=== PATIENT | female | born 1985 | race African-American/Black ===

== ENCOUNTER 2017-03-21 08:46 | Observation (INO) ==
[2017-03-21 09:55] LABS: Apearance,Urine CLOUDY (Clear); Bilirubin,Urine Negative (Negative); Blood, Urine Large mg/dL (Negative); Glucose,Urine (UA) Negative (Negative); Ketones,Urine Negative (Negative); Mucus,Urine Occasional /LPF (Occasional); Nitrite,Urine Negative (Negative); Protein,Urine 100 MG/DL; RBC,Urine 1059 /HPF (0-4); Urine Color Amber (Yellow); Urine Specific Gravity 1.006 (1.001-1.035); Urine Urobilinogen < 2.0 EU/DL (0.2-1.0); WBC,Urine 297 /HPF (0-6)
--- NOTE | 2017-03-21 09:56 | Ultrasound Report ---
Exam: US OB >= 14 weeks fetus Date: 03/21/2017 8:57 AM Comparison: 01/25/2017 Indication: Twin gestation with questionable PROM Technique:[Multiple transabdominal real-time scans were obtained. Color flow scans obtained. Ultrasound images were captured and stored.] Findings: Twin gestation. Twin A in the cephalic presentation with a heart rate 152 BPM. The anterior placenta is not low-lying in position with cervical length of 31 mm. Maternal ovaries are not identified. No detailed survey scans were obtained. Septum identified. Measurements obtained are as follows: BPD 32 weeks 2 days HC 33 weeks 3 days AC 32 weeks 0 days FL 31 weeks 6 days EFW 4 lbs. 3 oz. +/- 10 ounces GP 27.2% CARLA 199.7 mm Twin B is in the cephalic presentation with a heart rate 165 BPM. Anterior placenta with no detailed survey scans obtained. Measurements obtained are as follows: BPD 31 weeks 6 days HC 33 weeks 1 day AC 32 weeks 3 days FL 31 weeks 2 days EFW 4 lbs. 3 oz. +/- 10 ounces GP 26.6% Impression: Twin A in the cephalic presentation at 32 weeks 3 days +/- 2 weeks 2 days with EDC 05/13/2017. Prior EDC 05/12/2017. Twin B in the cephalic presentation at 32 weeks 1 day +/- 2 weeks 2 days with EDC 05/15/2017. Prior EDC 05/16/2017. CARLA 199.7 mm. PROCEDURE INTERPRETED AT [facility] DEPARTMENT OF RADIOLOGY Final Report Signed by: Dr. Cari Randloph
[2017-03-21] MEDS ORDERED: TERBUTALINE 1 MG/1 ML VIAL SUBCUT ONE (10:21)
[2017-03-21] MEDS ORDERED: NIFEdipine 10 MG CAPSULE PO ONE (10:21)
[2017-03-21] MEDS ORDERED: LACTATED RINGERS 1,000 ML IV ONE (10:21)
[2017-03-21] MEDS ORDERED: ceFAZolin 2,000 MG in PREMIX 1 EACH IV ONE (10:34)
--- NOTE | 2017-03-21 10:39 | OB/GYN History & Physical ---
History of Present Illness Chief complaint: Twin gestation 32 weeks labor UTI History of present illness: Ms. Ley is a 32 year old female Twin gestation at 32 weeks estimated gestational age with labor who was taken Procardia at home. She was found to have a substantial urinary tract infection on evaluation here in the labor department and complains of contractions. She is mackenzie every 3-4 minutes. Her cervix has not changed from her previous exam the office. He is constantly admitted for IV antibiotics and toco lysis. Will administer IM steroids and repeat in 24 hours Home Medications Medication Instructions Recorded Confirmed Type Pnv No.95/Ferrous Fum/Folic AC 1 tablet PO ONCE 01/25/17 03/21/17 History [ Tablet] Allergies Allergy/AdvReac Type Severity Reaction Status Date / Time No Known Allergies Allergy Verified 03/21/17 08:59 12 point system: reviewed and no additional remarkable complaints except as stated - Gastrointestinal Gastrointestinal: Present: cramping Medical,Surgical,& Family Hx - Medical History Cardio: No history of: Cardiovascular Problems Psychological: No history of: Previous Suicide Attempt, Psychiatric/Substance Abuse Tx, Violent Behavior Neurology: History of: Migraine No history of: Seizures Endocrine: No history of: Endocrine Problems Renal: No history of: Renal Problems Musculoskeletal: No history of: Amputation, Musculoskeletal Problems Hematology: History of: Anemia No history of: Blood Transfusion Reaction Reproductive: History of: Reproductive Problems (miscarriage x's 1) No history of: Abnormal Pap Smear, Breast Cancer, Endometriosis, Ectopic , Ovarian Cysts, Complication, Sexually Transmitted Disorders , Reproductive Cancer Other: No history of: Anesthesia Reactions, Anaphylaxis, Cancer, HIV, Malignant Hyperthermia, Miscellaneous Medical Problems - Surgical History Cardiac Surgeries: Patient Denies: Cardiac Catheterization, Cardiac Surgery Thoracic Surgeries: Patient denies;: Kidney (Renal Surgery), Lithotripsy, Nephrectomy, Organ Transplant Neurologic Surgeries: Patient denies: Neurologic Surgery HEENT Surgeries: Patient denies: Eye Surgery, Thyroid Surgery, Tonsilectomy & Adenoidectomy Reproductive Surgeries: Surgical HX of;: Section (C Section x 2) Patient denies;: Breast Surgery, Cystoscopy, Dilation and Curettage, Genitourinary Surgery, Gynecologic Surgery, Hysterectomy, Tubal Ligation - Family History Family History: Reports;: Family Hypertension (MGM) Denies;: Family Anesthesia Reaction, Family Cancer, Family Diabetes, Family Heart Disease, Family Psychiatric Problems, Family Stroke - Social History 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 General appearance: no acute distress - Head Head exam: Present: normal inspection, normocephalic, atraumatic - Neck Neck exam: Present: normal inspection - Respiratory Respiratory exam: Present: clear to auscultation bilaterally - Breast Breasts: as per HPI Menstruation: as per HPI - Cardiovascular Cardiovascular exam: Present: regular rate and rhythm - GI/Abdominal GI/Abdominal exam: Present: normal bowel sounds - Extremities Exam Extremities exam: Present: normal inspection, normal capillary refill - Back Exam Back exam: Present: normal inspection - Neurological Exam Neurological exam: Present: alert, oriented X3 - Psychiatric Psychiatric exam: Present: normal affect, normal mood - Skin Skin exam: Present: normal color, warm
[2017-03-21] MEDS: PROMETHAZINE 25 MG/1 ML VIAL IM PRN (10:40)
[2017-03-21] MEDS: MEPERIDINE 50 MG/1 ML VIAL IM PRN (10:40)
[2017-03-21] MEDS ORDERED: MAGNESIUM SULF RIDER 100 ML IV ONE (10:47)
[2017-03-21] MEDS ORDERED: CALCIUM GLUCONATE 1,000 MG in SODIUM CHLORIDE 0.9% 100 ML IV PRN (10:47)
[2017-03-21 11:18] LABS: Basophils % 0.2 % (0.0-0.8); Eosinophils # 0.1 10*3/uL (0.0-0.87); Eosinophils % 0.8 % (0.00-10.9); Hematocrit 28.6 VOL% (35.7-47.0); Hemoglobin 9.1 GM/DL (12.0-16.0); Immature Granulocytes % 0.4 %; Immature Granulocytes Absolute 0.05 #; Lymphocytes # 2.2 10*3/uL (1.4-4.0); Lymphocytes % 17.4 % (21.3-54.2); Mean Corpuscular HGB Conc 31.8 GM/DL (32-36); Mean Corpuscular Hemoglobin 25 PG (27-34); Mean Corpuscular Volume 78.6 FL (87-102); Mean Platelet Volume 10.6 FL (9.6-12.0); Monocytes # 0.6 10*3/uL (0.11-0.8); Monocytes % 4.6 % (1.7-12.7); Neutrophils # 9.5 10*3/uL (1.4-7.4); Neutrophils % 76.6 % (38.7-73.9); Platelet Count 245 T/CUMM (130-400); Red Blood Count 3.64 MC/CUMM (3.8-5.5); Red Cell Distribution Width 14.4 % (9.3-17.3); White Blood Count 12.4 T/CUMM (4-12)
[2017-03-21] MEDS ORDERED: ONDANSETRON 4 MG/2 ML VIAL IV PRN (11:45)
[2017-03-21] MEDS: MAGNESIUM SULF DRIP 40 GM/1,000 ML ML IV SCH (11:47)
[2017-03-21] MEDS: BETAMETH SODIUM PHOS/ACETATE 30 MG/5 ML VIAL IM SCH (11:59)
[2017-03-21] MEDS ORDERED: ceFAZolin 2,000 MG in SODIUM CHLORIDE 0.9% 100 ML IV SCH (16:40)
[2017-03-21] MEDS: ceFAZolin 2,000 MG in SODIUM CHLORIDE 0.9% 100 ML IV SCH ×2 (16:45→23:30)
[2017-03-21] MEDS: LACTATED RINGERS 1,000 ML IV SCH (18:21)
[2017-03-22] MEDS: MEPERIDINE 50 MG/1 ML VIAL IM PRN (01:40)
[2017-03-22] MEDS: PROMETHAZINE 25 MG/1 ML VIAL IM PRN (01:40)
[2017-03-22] MEDS: ceFAZolin 2,000 MG in SODIUM CHLORIDE 0.9% 100 ML IV SCH ×2 (05:35→12:35)
[2017-03-22] MEDS: MAGNESIUM SULF DRIP 40 GM/1,000 ML ML IV SCH (07:43)
[2017-03-22] MEDS: LACTATED RINGERS 1,000 ML IV SCH ×2 (07:44→07:58)
[2017-03-22] MEDS ORDERED: SIMETHICONE CHEW 80 MG TABLET PO PRN (07:57)
--- NOTE | 2017-03-22 09:40 | Discharge Summary ---
Hospital Course - Hospital Course Hospital Course: Patient was admitted received IV Ancef for urinary tract infection and IV magnesium for tocolysis. She received 2 doses of IM Celestone. She had just occasional contractions after discontinuing her magnesium was placed back on p.o. Procardia and was discharged on bedrest to follow up the following week Discharge Plan - Discharge Data Disposition: Disch To Home/Self Care Condition at Discharge: Stable Discharge Diet: regular diet Activity: other (Bedrest) Hygiene: no restrictions Weight Bearing at Discharge: full weight bearing Driving: not until seen by doctor Contact your physician if you experience:: Shortness of breath, Bleeding - Discharge Medications New cephALEXin [Keflex] 500 mg PO Q12HR #20 capsule NIFEdipine [Nifedipine] 10 mg PO Q4H WA #100 capsule Continue Pnv No.95/Ferrous Fum/Folic AC [ Tablet] 1 tablet PO ONCE Discontinued Ferrous Sulfate [Ferrous Sulfate Cap] 325 mg PO DAILY NIFEdipine CAP [Procardia] 10 mg PO Q4HR - Follow Up or Referral Follow Up: Rafael Nevarez MD [Physician] - 1 Week - Forms/Instructions Exam - Constitutional Vitals: Period Temp Pulse Resp BP Sys/Arvizu Pulse Ox Last 24 Hr 97.5 F-98.4 F 85-120 20-20 114-134/71-75 98-100 Discharge Results Procedures and tests throughout hospitalization: Pending Orders 03/21/17 Urine Culture Routine Labs on day of discharge: Labs from last 24 hours 03/21/17 03/21/17 03/21/17 23:39 17:07 11:10 WBC 12.4 H RBC 3.64 L Hgb 9.1 L Hct 28.6 L MCV 78.6 L MCH 25 L MCHC 31.8 L RDW 14.4 Plt Count 245 MPV 10.6 Neut % (Auto) 76.6 H Lymph % (Auto) 17.4 L Hale % (Auto) 4.6 Eos % (Auto) 0.8 Baso % (Auto) 0.2 Neut # (Auto) 9.5 H Lymph # (Auto) 2.2 Hale # (Auto) 0.6 Eos # (Auto) 0.1 Baso # (Auto) 0.0 Immature Gran % 0.4 Nucleated RBC % 0.0 Immature Gran # 0.05 Nucleated RBCs # 0.00 Magnesium 5.6 H 5.1 H Urine Color Urine Appearance Urine pH Ur Specific [place] Urine Protein Urine Glucose (UA) Urine Ketones Urine Blood Urine Nitrate Urine Bilirubin Urine Urobilinogen Urine Leukocytes Urine RBC Urine WBC Urine WBC Clumps Urine Mucus Ur Culture Indicated? 03/21/17 09:43 WBC RBC Hgb Hct MCV MCH MCHC RDW Plt Count MPV Neut % (Auto) Lymph % (Auto) Hale % (Auto) Eos % (Auto) Baso % (Auto) Neut # (Auto) Lymph # (Auto) Hale # (Auto) Eos # (Auto) Baso # (Auto) Immature Gran % Nucleated RBC % Immature Gran # Nucleated RBCs # Magnesium Urine Color Pascale Urine Appearance Cloudy Urine pH 6.0 Ur Specific [place] 1.006 Urine Protein 100 Urine Glucose (UA) Negative Urine Ketones Negative Urine Blood Large Urine Nitrate Negative Urine Bilirubin Negative Urine Urobilinogen < 2.0 H Urine Leukocytes Large H Urine RBC 1059 Urine WBC 297 Urine WBC Clumps Many Urine Mucus Occasional Ur Culture Indicated? Results to follow DS: Provider Date of admission: 03/21/17 10:47 Primary care physician: . No PCP Attending physician on admission: Candida Martinez Consults: 03/21/17 10:47 Consult to Physician [CONS] Routine Comment: Consulting Provider: Consult to Specialist Group: Neonatology Discharging clinician: Candida Martinez Expected date of discharge: 03/22/17
[2017-03-22] MEDS ORDERED: BETAMETH SODIUM PHOS/ACETATE 30 MG/5 ML VIAL ONE (12:28)
[2017-03-22] MEDS: BETAMETH SODIUM PHOS/ACETATE 30 MG/5 ML VIAL IM SCH (12:35)
[2017-03-22] MEDS ORDERED: NIFEdipine 10 MG CAPSULE PO ONE (13:08)
[2017-03-22] MEDS ORDERED: ACETAMINOPHEN 500 MG TABLET PO ONE (13:08)
[2017-03-22 13:36] VITALS: BP 122/59
== END 2017-03-22 14:00 | disposition home or self-care (01) ==
LOC: N.LAB 08:46 → N.LD 08:47 → INTOOBSV 10:47 → N.LD 10:47
PROVIDERS: ADMIT Specialist; ATTEND Specialist

== ENCOUNTER 2017-04-21 05:36 | Inpatient (IN) ==
[2017-04-21] MEDS ORDERED: ceFAZolin 2,000 MG in SODIUM CHLORIDE 0.9% 100 ML IV ONE (05:40)
[2017-04-21] MEDS ORDERED: CITRIC ACID/SODIUM CITRATE 30 ML UDCUP PO PRN (05:40)
[2017-04-21] MEDS ORDERED: FAMOTIDINE 20 MG/2 ML VIAL IV PRN (05:43)
[2017-04-21] MEDS ORDERED: ONDANSETRON 4 MG/2 ML VIAL IV PRN ×2 (06:18→10:46)
[2017-04-21] MEDS ORDERED: LACTATED RINGERS 1,000 ML IV ONE (06:19)
[2017-04-21 06:31] LABS: Basophils % 0.2 % (0.0-0.8); Eosinophils # 0.1 10*3/uL (0.0-0.87); Eosinophils % 0.8 % (0.00-10.9); Hematocrit 29.1 VOL% (35.7-47.0); Hemoglobin 9.2 GM/DL (12.0-16.0); Immature Granulocytes % 0.7 %; Immature Granulocytes Absolute 0.06 #; Lymphocytes # 2.2 10*3/uL (1.4-4.0); Lymphocytes % 26.5 % (21.3-54.2); Mean Corpuscular HGB Conc 31.6 GM/DL (32-36); Mean Corpuscular Hemoglobin 24 PG (27-34); Mean Corpuscular Volume 75.4 FL (87-102); Mean Platelet Volume 12.1 FL (9.6-12.0); Monocytes # 0.6 10*3/uL (0.11-0.8); NRBC # 0.02 10*3/uL; Neutrophils # 5.4 10*3/uL (1.4-7.4); Neutrophils % 64.8 % (38.7-73.9); Platelet Count 244 T/CUMM (130-400); Red Blood Count 3.86 MC/CUMM (3.8-5.5); White Blood Count 8.3 T/CUMM (4-12)
[2017-04-21 06:41] LABS: INR 0.9; PT Patient Result 9.7 SECS; Partial Thromboplastin Time 25.3 SECS (0-40)
--- NOTE | 2017-04-21 07:06 | OB/GYN History & Physical ---
History of Present Illness Chief complaint: Twin gestation 37+ weeks previous 2 contractions History of present illness: Ms. Ley is a 32 year old female Previous 2 at 37+ weeks estimated gestational age twin gestation with a regular contractions admitted for repeat Home Medications Medication Instructions Recorded Confirmed Type Pnv No.95/Ferrous Fum/Folic AC 1 tablet PO ONCE 01/25/17 04/21/17 History [ Tablet] Ferrous Sulfate Tab [Feosol 325 mg PO DAILY MDD 325 04/21/17 04/21/17 History Original Tab] Allergies Allergy/AdvReac Type Severity Reaction Status Date / Time No Known Allergies Allergy Verified 03/21/17 08:59 12 point system: reviewed and no additional remarkable complaints except as stated Medical,Surgical,& Family Hx - Medical History Cardio: No history of: Cardiovascular Problems Psychological: No history of: Previous Suicide Attempt, Psychiatric/Substance Abuse Tx, Violent Behavior Neurology: History of: Migraine (states she take caffine pills and states last time she took about wk ago) No history of: Seizures Endocrine: No history of: Endocrine Problems Renal: No history of: Renal Problems Musculoskeletal: No history of: Amputation, Musculoskeletal Problems Hematology: History of: Anemia (states she takes Iron 03/20/17) No history of: Blood Transfusion Reaction Reproductive: History of: Reproductive Problems (miscarriage x's 2) No history of: Abnormal Pap Smear, Breast Cancer, Endometriosis, Ectopic , Ovarian Cysts, Complication, Sexually Transmitted Disorders , Reproductive Cancer Other: No history of: Anesthesia Reactions, Anaphylaxis, Cancer, HIV, Malignant Hyperthermia, Miscellaneous Medical Problems - Surgical History Cardiac Surgeries: Patient Denies: Cardiac Catheterization, Cardiac Surgery Thoracic Surgeries: Patient denies;: Kidney (Renal Surgery), Lithotripsy, Nephrectomy, Organ Transplant Neurologic Surgeries: Patient denies: Neurologic Surgery HEENT Surgeries: Patient denies: Eye Surgery, Thyroid Surgery, Tonsilectomy & Adenoidectomy Reproductive Surgeries: Surgical HX of;: Section (C Section x 3), Dilation and Curettage (2 D&C's 2007) Patient denies;: Breast Surgery, Cystoscopy, Genitourinary Surgery, Gynecologic Surgery, Hysterectomy, Tubal Ligation - Family History Family History: Reports;: Family Diabetes (Sister and M Aunt), Family Heart Disease (MGM), Family Hypertension (MGM PGM) Denies;: Family Anesthesia Reaction, Family Cancer, Family Psychiatric Problems, Family Stroke - Social History Smoking Status: Never smoker Frequency of Alcohol Use: None Type of Drug Use: None 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 - Constitutional General appearance: no acute distress - Head Head exam: Present: normal inspection, normocephalic, atraumatic - Neck Neck exam: Present: normal inspection - Respiratory Respiratory exam: Present: clear to auscultation bilaterally - Breast Breasts: as per HPI Menstruation: as per HPI - Cardiovascular Cardiovascular exam: Present: regular rate and rhythm - GI/Abdominal GI/Abdominal exam: Present: normal bowel sounds - Extremities Exam Extremities exam: Present: normal inspection, normal capillary refill - Back Exam Back exam: Present: normal inspection - Neurological Exam Neurological exam: Present: alert, oriented X3 - Psychiatric Psychiatric exam: Present: normal affect, normal mood - Skin Skin exam: Present: normal color, warm Results - Labs CBC & BMP: 04/21/17 06:02
[2017-04-21 07:11] LABS: Albumin 2.6 G/DL (3.4-5.0); Bilirubin,Total 0.6 MG/DL (0.2-1.0); Calcium 8.7 MG/DL (8.5-10.1); Osmolality,Calculated 273.4 MOS/KG (273-304); Potassium 4.2 MMOL/L (3.5-5.1); Total Protein 6.3 G/DL (6.4-8.3)
[2017-04-21] MEDS: LACTATED RINGERS 1,000 ML IV SCH ×2 (08:07→21:50)
[2017-04-21] MEDS ORDERED: OXYTOCIN/LR 20 UNIT/1,000 ML BAG IV ONE ×2 (08:56→10:46)
--- NOTE | 2017-04-21 10:45 | Operative Note ---
Date of procedure: 04/21/17 Pre-op diagnosis: Twin gestation at 37+ weeks previous 2 labor Post-op diagnosis: same Procedure: This is Dr. Nevarez dictating operative note: Preoperative diagnosis twin gestation at 37 weeks 2. Previous C- section 2 3. Early labor 4. Undesired future fertility Postoperative diagnosis same Procedure repeat low transverse section 2. Bilateral tubal interruption via Filshie clip placement Surgeon Dr. Nevarez Anesthesia spinal Findings: Twin 1 liveborn [male] Apgars 9 and 9 2. Twin 2 liveborn male Apgars 8 9 nuchal cord 2 Complications none Estimated blood loss [400] mL Disposition patient to recovery room in [stable] condition. 's to nursery in [stable] condition Operative description: After the risks benefits and alternatives were explained to the patient in detail and informed consent was obtained, the patient was taken to the operating room where she was placed in the supine position. After achieving appropriate anesthesia the abdomen was prepped and draped in the usual sterile fashion. A Mendoza catheter was placed without difficulty. After the appropriate time out and after adequate anesthesia was ascertained a Pfannenstiel skin incision was made and carried down through the subcutaneous tissue down to the fascia. The fascia was nicked in the midportion and undermined and incised both laterally and cephalad using sharp dissection with the curved Phillips scissors. 2 Wagner clamps were used to elevate the rectus fascia superiorly which was bluntly and sharply dissected away from the rectus muscle below. This was repeated inferiorly. The rectus muscles were then bluntly in the midline the peritoneum identified grasped with 2 curved hemostats and entered sharply using the curved Metzenbaum scissors. A bladder blade was then placed in the pelvis and a bladder flap was created off the lower uterine segment using sharp dissection with the Metzenbaum scissors. The bladder blade was then repositioned. A transverse incision was made across the lower uterine segment down to the amnion. Entry into the amnion revealed [ clear] amniotic fluid. The uterine incision was then extended laterally using bilateral finger fractionation. Upon palpation the presenting part for twin 1 was [vertex] which was gently elevated out of the pelvis and delivered onto the abdominal wall using appropriate fundal pressure. The infant's nose and oropharynx were bulb and DeLee suctioned and the infant had spontaneous cry delivery. The cord was doubly clamped and cut and the infant was handed over to the team for care. Amniotomy on the second 1 was performed the fluid is noted to be clear. Presentation was noted to be footling breech which was extracted in usual fashion without difficulty. The 's nose and oropharynx was bulb suctioned and the infant has been described delivery. Cord was doubly clamped cut and this was handed over again to the team for care. Cord blood was obtained 2. The placentas was delivered manually and IV Pitocin antibiotics and Zofran were begun. The uterus was then exteriorized and placed in a wet laparotomy sponge. 2 fingers wrapped around a wet laparotomy sponge were used to remove all residual membranes from the uterine cavity. The uterus was then closed in 2 layers. The first layer of myometrium was closed with #1 Monocryl suture in an inner locking fashion beginning at both angles and overlapping slightly in the midline. The second layer of myometrium was closed with #1 Monocryl suture in a running imbricating stitch beginning at the right angle and continuing the length of the uterine incision. Hemostasis was noted to be excellent. Filshie clip placement was performed 90 ampullary portion of each tube with 2 clips on each tube and placement was checked and noted be correct. The posterior cul-de-sac was then irrigated and cleansed with a wet laparotomy sponge and the uterus was placed back in the abdominal cavity. Both pericolic gutters were then irrigated and cleansed with a wet lap sponge. The uterine incision was then re-irrigated and again noted to be hemostatic. All counts were noted to be correct. The subcutaneous tissue was then closed using 3-0 Vicryl suture in a running fashion. The subfascial area was made hemostatic using electrocautery and closed with #1 PDS suture in a running fashion beginning at both angles and overlapping slightly in the midline. The subcutaneous tissue was irrigated and made hemostatic using electrocautery and closed with 2-0 Vicryl suture in a running fashion and the skin was closed with wide skin mayco and a sterile pressure bandage was applied to the wound. All sponge needle and instrument counts were correct -3 at the end of the procedure. The patient's urine was [ clear] both at the beginning in the end of the procedure. The patient was taken to the recovery room in stable condition noted today subfascial 10 flat Valeriy-Kenney was placed prior to closure of the peritoneum and fascia and this was sewn in place at the skin using 3-0 Vicryl suture. Anesthesia: spinal Surgeon / Physician: Rafael Nevarez Estimated blood loss: other (400) Specimens: other (Placentas to pathology) Condition: stable Disposition: floor Results - Labs CBC & BMP: 04/21/17 06:02 04/21/17 06:02 Discharge Plan - Discharge Medications No Action Pnv No.95/Ferrous Fum/Folic AC [ Tablet] 1 tablet PO ONCE Ferrous Sulfate Tab [Feosol Original Tab] 325 mg PO DAILY MDD 325 - Follow Up or Referral - Forms/Instructions
[2017-04-21] MEDS ORDERED: DIPH/TET/ACEL PERT BOOSTER VACCINE 0.5 ML VIAL IM ONE (10:46)
[2017-04-21] MEDS ORDERED: MEASLES/MUMPS/RUBELLA VACCINE 0.5 ML VIAL SUBCUT ONE (10:46)
[2017-04-21] MEDS ORDERED: BENZOCAINE 20%/MENTHOL 0.5% SPRAY 56 GM CAN TOP PRN (10:46)
[2017-04-21] MEDS ORDERED: HYDROCORTISONE 2.5% RECTAL CREAM 30 GM TUBE TOP PRN (10:46)
[2017-04-21] MEDS ORDERED: BISACODYL 10 MG SUPP RECTAL PRN (10:46)
[2017-04-21] MEDS ORDERED: ACETAMINOPHEN 325 MG TABLET PO PRN (10:46)
[2017-04-21] MEDS ORDERED: RHO(D) IMMUNE GLOBULIN 300 MCG SYRINGE IM ONE (10:46)
[2017-04-21] MEDS ORDERED: oxyCODONE/ACETAMINOPHEN 5-325 MG TABLET PO PRN (10:46)
[2017-04-21] MEDS ORDERED: LANOLIN 50% CREAM 0.3 OZ TUBE TOP PRN (10:46)
[2017-04-21] MEDS ORDERED: WITCH HAZEL PADS 100/JAR TOP PRN (10:46)
[2017-04-21] MEDS ORDERED: fentaNYL 100 MCG/2 ML VIAL ONE (11:01)
[2017-04-21] MEDS ORDERED: MIDAZOLAM 2 MG/2 ML VIAL ONE (11:02)
[2017-04-21] MEDS ORDERED: MORPHINE 10 MG/10 ML VIAL ONE (11:02)
[2017-04-21] MEDS ORDERED: diphenhydrAMINE 50 MG/1 ML VIAL IV PRN (11:27)
[2017-04-21] MEDS ORDERED: hydrOXYzine HCL 25 MG/1 ML VIAL IM PRN (11:27)
[2017-04-21] MEDS ORDERED: PHENYLEPHRINE 1 MG/10 ML SYRINGE IV ONE (12:00)
[2017-04-21] MEDS: HYDROmorphone 2 MG/1 ML VIAL IV PRN ×3 (12:20→19:41)
[2017-04-21] MEDS: diphenhydrAMINE 50 MG/1 ML VIAL IV PRN ×2 (15:23→21:45)
[2017-04-21] MEDS: HydrOXYzine PAMOATE 25 MG CAPSULE PO PRN (19:41)
[2017-04-21] MEDS: DOCUSATE SODIUM 100 MG CAPSULE PO SCH (21:45)
[2017-04-21] MEDS: IBUPROFEN 800 MG TABLET PO PRN (22:00)
[2017-04-21] MEDS: oxyCODONE/ACETAMINOPHEN 5-325 MG TABLET PO PRN (22:59)
[2017-04-22] MEDS: HydrOXYzine PAMOATE 25 MG CAPSULE PO PRN (01:54)
[2017-04-22 03:44] LABS: Apearance,Urine CLEAR (Clear); Bilirubin,Urine Negative (Negative); Blood, Urine Negative (Negative); Glucose,Urine (UA) Negative (Negative); Ketones,Urine Negative (Negative); Nitrite,Urine Negative (Negative); Protein,Urine Negative; RBC,Urine <1 /HPF (0-4); Squamous Epithelial Cell,Urine Occasional /HPF (0-10); Urine Color Straw (Yellow); Urine Specific Gravity 1.004 (1.001-1.035); Urine Urobilinogen < 2.0 EU/DL (0.2-1.0); WBC,Urine 2 /HPF (0-6)
[2017-04-22] MEDS: oxyCODONE/ACETAMINOPHEN 5-325 MG TABLET PO PRN ×3 (05:50→19:17)
[2017-04-22 06:38] LABS: Basophils % 0.1 % (0.0-0.8); Eosinophils % 0.3 % (0.00-10.9); Hematocrit 25.9 VOL% (35.7-47.0); Hemoglobin 8.2 GM/DL (12.0-16.0); Immature Granulocytes % 0.5 %; Immature Granulocytes Absolute 0.05 #; Lymphocytes # 1.8 10*3/uL (1.4-4.0); Lymphocytes % 16.6 % (21.3-54.2); Mean Corpuscular HGB Conc 31.7 GM/DL (32-36); Mean Corpuscular Hemoglobin 24 PG (27-34); Mean Corpuscular Volume 76.2 FL (87-102); Mean Platelet Volume 11.1 FL (9.6-12.0); Monocytes # 0.8 10*3/uL (0.11-0.8); Monocytes % 7.3 % (1.7-12.7); NRBC # 0.02 10*3/uL; Neutrophils # 8.1 10*3/uL (1.4-7.4); Neutrophils % 75.2 % (38.7-73.9); Platelet Count 186 T/CUMM (130-400); White Blood Count 10.8 T/CUMM (4-12)
[2017-04-22] MEDS: SIMETHICONE CHEW 80 MG TABLET PO PRN ×3 (06:47→19:17)
--- NOTE | 2017-04-22 08:47 | OB/GYN Progress Note ---
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 She is tolerating her diet. She is alert and oriented -3 Cardiovascular regular rate and rhythm Lungs clear to auscultation Abdomen soft with appropriate tenderness and bowel sounds are present and her incision is dry no bleeding Is good refill HEENT shows pink conjunctiva Fowler assessment 1 day of surgery doing well Plan continue present management with expected DC in a.m. 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
[2017-04-22] MEDS: MULTIVITAMIN (PRENATAL) TABLET PO SCH (08:52)
[2017-04-22] MEDS: FERROUS SULFATE 325 MG TABLET PO SCH (08:52)
[2017-04-22] MEDS: DOCUSATE SODIUM 100 MG CAPSULE PO SCH ×2 (08:52→19:17)
[2017-04-22] MEDS: MAGNESIUM HYDROXIDE SUSP 30 ML UDCUP PO PRN ×2 (08:58→19:17)
--- NOTE | 2017-04-22 09:48 | Anesthesia Post-Op ---
Anesthesia Post OP - Post Ansesthetic Evaluation Patient seen in post op: Yes Resp: within normal limits CV: within normal limits Mental: within normal limits Temp: within normal limits Ayrd-Lk-Ybqrwjrxk: within normal limits Nausea and Vomiting: within normal limits Pain: within normal limits
[2017-04-22] MEDS: IBUPROFEN 800 MG TABLET PO PRN ×2 (10:22→19:18)
[2017-04-22] MEDS ORDERED: diphenhydrAMINE CAP 25 MG CAPSULE PO PRN (10:24)
--- NOTE | 2017-04-22 11:26 | Pathology Report from [facility] ---
[facility] [place] ACCESSION # : [id number] PATIENT NAME : Lazaro Ley ORDERING DR : SISSY KELLY MD CLINICAL HX: Twin gestation, repeat C/S; 37 wks gestation POST-OP DX: Same SPECIMEN INFO: Placenta GROSS DESCRIPTION: Received fresh labeled LAZARO LEY & PLACENTA is a fused twin placenta with separate amniotic sacs. Following separation, Placenta A weighs 394 gms and measures 21.5 x 12.5 x 2.5 cm. The membranes are pink farooq and translucent. The umbilical cord measures 35. cm and has a single attached surgical clamp. The cord contains three vessels and is eccentrically inserted. The surface is blue turcios and intact. The maternal surface displays hemorrhagic red turcios cotyledons with no abnormalities appreciated upon sectioning. Placenta A sections submitted A- membranes and cord, B- and maternal surfaces.Placenta B weighs 338 gms and measures 24.0 x 11.0 x 2.5 cm. The membranes are pink farooq and translucent. The umbilical cord measures 36.0 cm and has 2 attached clamps. The cord contains three vessels and is eccentrically inserted. The surface is blue turcios and intact. The maternal surface is hemorrhagic and intact with a few scattered calcifications seen. Sectioning reveals no gross abnormalities. Placenta B sections submitted C - membranes and cord, D- and maternal surface, E-Dividing membrane. DIAGNOSIS FOR LAZARO LEY: Diamniotic dichorionic fused twin placentas (A&B ):PLACENTA A: Focal placental infraction with dystrophic calcification, mild intervillous blood; tri-vessel umbilical cord, eccentrically inserted; membranes with focal chronic inflammation and attached blood.PLACENTA B: Focal placental infarction with dystrophic calcification, mild intervillous blood; tri -vessel umbilical cord, eccentrically inserted; membranes with focal chronic inflammation and attached blood. COLLECTED DATE: 04/21/2017 [facility] REPORT DATE: 04/22/2017 ELECTRONICALLY SIGNED BY: Bob Garcia M.D. 04/22/2017 - 9:55:03 [facility]ITALBhumi
[2017-04-23] MEDS: DOCUSATE SODIUM 100 MG CAPSULE PO SCH ×2 (00:46→09:43)
[2017-04-23] MEDS: IBUPROFEN 800 MG TABLET PO PRN ×2 (00:59→06:39)
[2017-04-23] MEDS: oxyCODONE/ACETAMINOPHEN 5-325 MG TABLET PO PRN ×2 (00:59→06:40)
[2017-04-23] MEDS: SIMETHICONE CHEW 80 MG TABLET PO PRN (02:15)
[2017-04-23] MEDS: MAGNESIUM HYDROXIDE SUSP 30 ML UDCUP PO PRN (06:35)
[2017-04-23 07:15] VITALS: BP 141/88
--- NOTE | 2017-04-23 09:07 | Discharge Summary ---
Hospital Course - Hospital Course Hospital Course: Postoperatively the patient did well. She had quick return of bowel and bladder function. She remained afebrile and normotensive throughout her hospitalization. She is consequently discharged on postoperative day #2 on a regular diet. Her discharge medication included Percocet for pain. She was given bleeding and infection cautions instructed maintain pelvic rest and limited activity and instructed to return office in 1 week for follow-up Discharge Plan - Discharge Data Disposition: Disch To Home/Self Care Discharge Diet: regular diet Activity: increase activity as tolerated, no lifting, other (Pelvic rest) Hygiene: may shower Weight Bearing at Discharge: full weight bearing Driving: not until seen by doctor Contact your physician if you experience:: fever over 101, Difficulty voiding, Redness or swelling, Nausea/Vomiting, Shortness of breath, Bleeding, pain uncontrolled by pain medications - Discharge Medications New oxyCODONE/ACETAMINOPHEN 5-325 [Percocet 5-325] 1 tablet PO Q6H PRN #20 tablet PRN Reason: Pain Severe (8-10) Continue Pnv No.95/Ferrous Fum/Folic AC [ Tablet] 1 tablet PO ONCE Ferrous Sulfate Tab [Feosol Original Tab] 325 mg PO DAILY MDD 325 - Follow Up or Referral Follow Up: Rafael Nevarez MD [Physician] - 1 Week - Forms/Instructions Exam - Constitutional Vitals: Period Temp Pulse Resp BP Sys/Arvizu Pulse Ox Last 24 Hr 97.1 F-98.2 F 80-94 16-20 114-141/72-94 94-98 DS: Provider Date of admission: 04/21/17 05:40 Primary care physician: . No PCP Attending physician on admission: Candida Martinez Consults: 04/21/17 05:40 Consult to Anesthesiology [CONS] Routine Consulting Provider: Reason for Anesthesiology: Pre-op Clearance 04/21/17 10:46 Consult to Metal Model Builder [CONS] Routine Consult Metal Model Builder: Breast Feeding Discharging clinician: Candida Martinez Expected date of discharge: 04/23/17
[2017-04-23] MEDS: MULTIVITAMIN (PRENATAL) TABLET PO SCH (09:54)
[2017-04-23] MEDS: FERROUS SULFATE 325 MG TABLET PO SCH (09:55)
== END 2017-04-23 11:40 | disposition home or self-care (01) | DRG 540 ==
LOC: N.LDOUT 05:36 → N.LD 05:42 → N.OB 14:32
PROVIDERS: ADMIT Specialist; ATTEND Specialist